=== PATIENT | female | born 1975 | race Caucasian/White ===

== ENCOUNTER 2021-03-20 10:19 | Outpatient (CLI) | payer OTHER, SELFPAY ==
[2021-03-20 11:41] LABS: SARS-CoV-2 RNA PCR Negative (Negative)
== END 2021-03-20 10:20 | disposition home or self-care (01) ==
LOC: CHSLAB 10:23
PROVIDERS: PCP Internal Medicine; Visit Provider Nurse Practitioner Family
DX: Z20.822 Contact with and (suspected) exposure to COVID-19 (principal)
CPT/HCPCS: C9803; U0003; U0005

== ENCOUNTER 2022-05-29 08:31 | Emergency (ER) | payer OTHER, SELFPAY ==
[2022-05-29 08:34] VITALS: BP 121/84; PULSE 88; RESP 20; TEMP 36.6; O2SAT 97
--- NOTE | 2022-05-29 09:09 | ED.GENADULT ---
HPI - General Adult General Chief complaint: Upper Respiratory Infection Stated complaint: cold flu Source: patient Mode of arrival: ambulatory Limitations: no limitations History of Present Illness HPI narrative: Patient presents patient presents for evaluation of sick symptoms since Tuesday. Symptoms include sore throat, ear pain, occasional dry cough and chest tightness. She denies any fever, chills, nausea, vomiting or diarrhea. She is hoping to be swabbed for COVID. No personal hx of COVID. She has received COVID vaccination. 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 She is also planning on seeing her elderly father in the coming days. No additional complaints or concerns. Related Data Home Medications Medication Instructions Recorded Confirmed atogepant 60 mg tablet (Qulipta) mg 05/29/22 celecoxib 200 mg capsule mg 05/29/22 eletriptan 40 mg tablet mg 05/29/22 trazodone 50 mg tablet mg 05/29/22 zonisamide 100 mg capsule mg PO 05/29/22 Allergies Allergy/AdvReac Type Severity Reaction Status Date / Time No Known Allergies Allergy Verified 05/29/22 09:03 Review of Systems Review of Systems: CONSTITUTIONAL: Denies fever, chills, or sweats. EYES: Denies visual changes, redness, or discharge. ENT: Reports sore throat and bilateral ear pain CARDIOVASCULAR: Denies chest pain, palpitations, or edema. RESPIRATORY: Reports occasional dry cough and chest tightness. Denies dyspnea. GASTROINTESTINAL: Denies abdominal pain, nausea, vomiting, or diarrhea. GENITOURINARY: Denies dysuria or hematuria. SKIN: Denies rash or itching. MUSCULOSKELETAL: Denies back pain, joint pain, or myalgia. NEUROLOGIC: Denies headache, numbness, dizziness, or weakness. PSYCHIATRIC: Denies anxiety or depression. [facility] Past Medical History Medical History (Updated 05/29/22 @ 09:16 by Darell Rivas, [place], [place]) Brain tumor Breast cancer Surgical History Surgical History History of brain surgery History of mastectomy Family History Family History Father Dementia Social History Social History (Reviewed 05/29/22 @ 09:14 by Darell Rivas, [facility], Ron Smoking status: Never smoker Substance use: never Gender identity (if verbalized by the patient): Female Sexual Orientation (if Verbalized by the Patient): Straight or Heterosexual Spiritual care concerns: No Exam Narrative: GENERAL: Well-appearing, well-nourished, and in no acute distress. HEAD: Normocephalic, atraumatic. EYES: PERRLA and EOMI. ENT: Nares clear, no rhinorrhea or epistaxis. Mucous membranes moist. Posterior pharyngeal erythema without exudate. Uvula is midline. Bilateral TMs pearly johnson nonbulging NECK: Supple. No adenopathy or masses. No carotid bruits or JVD CHEST: Clear to auscultation. No respiratory distress. No wheezes rales or rhonchi HEART: Regular rate and rhythm. No murmur heard. Normal peripheral pulses. ABDOMEN: Soft, nontender, nondistended, normal active bowel sounds. EXTREMITIES: Normal range of motion. No edema. SKIN: Warm, dry, no rash. NEURO: No focal deficits. Alert and oriented x3. PSYCH: Normal mood and affect. Course Course Emergency Course: This is a 39-year-old female who presented for evaluation of sick symptoms. COVID was negative. Influenza A positive. Will treat with Tamiflu. Increase hydration. Bctf-[id number] agents for symptom management. Advised if she sees her father it would place him at risk. Will wear mask. Strict hand hygiene. Follow up with primary provider. Go to ER for worsening symptoms. Pt in agreement with plan of care. Level of Care: Express Care Visit Vital Signs Vital signs: Vital Signs Temperature 36.6 C 05/29/22 08:34 Pulse Rate 88 05/29/22 08:34 Respiratory Rate 20 05/29/22 08:34 Blood Pressure 121/84 05/29/22 08:34
== END 2022-05-29 09:25 | disposition home or self-care (01) ==
PROVIDERS: Emergency Provider Nurse Practitioner; PCP Internal Medicine
DX: J10.1 Influenza due to other identified influenza virus with other respiratory manifestations (principal); Z20.822 Contact with and (suspected) exposure to COVID-19; Z85.3 Personal history of malignant neoplasm of breast
CPT/HCPCS: 87081; 87426; 87804; 99213; C9803; G0463

== ENCOUNTER 2023-01-21 10:15 | Emergency (ER) | payer OTHER, SELFPAY ==
[2023-01-21 10:15] VITALS: BP 132/93; PULSE 97; RESP 20; TEMP 36.7; O2SAT 95
--- NOTE | 2023-01-21 10:38 | ED.GENADULT ---
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 Denies any abdominal pain she has had a cough for 2 weeks denies fever sore throat. She has had a little bit of a runny nose. She is eating and drinking. She complains of dysuria for the last 2 days. Denies any other lumps or bumps or weakness or numbness dizziness or lightheadedness. She had a nose bleed yesterday. she has had some nausea the last 2 days it has taken her nausea med for the medicine for this. Mother said she has not vomited she had some blood per her rectum when she wiped her Bottom today. Denies any other complaints. 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 She has had radiation therapy Related Data Home Medications Medication Instructions Recorded Confirmed atogepant 60 mg tablet (Qulipta) mg 05/29/22 celecoxib 200 mg capsule mg 05/29/22 eletriptan 40 mg tablet mg 05/29/22 trazodone 50 mg tablet mg 05/29/22 zonisamide 100 mg capsule mg PO 05/29/22 Allergies Allergy/AdvReac Type Severity Reaction Status Date / Time No Known Allergies Allergy Verified 05/29/22 09:03 [facility] Past Medical History Medical History Brain tumor Breast cancer Surgical History Surgical History History of brain surgery History of mastectomy Family History Family History Father Dementia Social History Social History Smoking status: Never smoker Substance use: never Living arrangements: with family Gender identity (if verbalized by the patient): Female Sexual Orientation (if Verbalized by the Patient): Straight or Heterosexual Spiritual care concerns: No Exam Narrative: White female appears in no apparent distress alert follows commands head she has deformity to left side of her head neck is supple nontender lungs are clear heart is regular rate rhythm without murmurs gallops or rubs abdomen is soft and nontender no hepatosplenomegaly or masses no CVA tenderness no abdominal bruits. Extremities no cyanosis clubbing or edema. Course Vital Signs Vital signs: Vital Signs Temperature 36.7 C 01/21/23 10:15 Pulse Rate 97 01/21/23 10:15 Respiratory Rate 20 01/21/23 10:15 Blood Pressure 132/93 H 01/21/23 10:15 Pulse Oximetry 95 01/21/23 10:15 Oxygen Delivery Room Air 01/21/23 10:15 Temperature 36.7 C 01/21/23 10:15 Pulse Rate 97 01/21/23 10:15 Respiratory Rate 20 01/21/23 10:15 Blood Pressure 132/93 H 01/21/23 10:15 Pulse Oximetry 95 01/21/23 10:15 Oxygen Delivery Room Air 01/21/23 10:15 Medical Decision Making [facility] Narrative Medical decision making narrative: patient is placed in room 2 with her mother history and physical were performed. The urinalysis was obtained via straight catheterization also for culture and sensitivity. Patient had soapsuds enema and got good results with this patient felt much better. Urinalysis was unremarkable. Stool for occult blood was negative Independent Historian: patient and mother? Differential Dx includes but not limited to: constipation, fecal impaction, metastasis Medications were Reviewed:? ? medications reviewed Medications treatments given: Soapsuds enemas With good results. Independe
[2023-01-21 11:13] LABS: Appearance Urine Clear (Clear); Bilirubin Urine Negative (Negative); Blood Urine Trace-Intact (Negative); Color Urine Light Yellow (Yellow); Glucose Urine UA Negative (Negative); Ketones Urine Negative (Negative); Leukocyte Esterase Ur Negative (Negative); Nitrate Urine Negative (Negative); Protein Urine Negative (Negative); Urobilinogen Urine 0.2 mg/dL (0.2-1.0)
[2023-01-21 11:18] LABS: Add Urine Microscopic? YES; RBC Urine None seen /hpf (0-2); Squamous Epithelial Cell Urine Few /hpf (Few); WBC Urine None seen /hpf (0-3)
[2023-01-21 11:19] LABS: Bacteria Urine Trace /hpf; Mucus Urine Moderate /lpf
[2023-01-21 11:24] LABS: Occult Blood Negative (Negative)
[2023-01-21 12:21] VITALS: BP 136/91; PULSE 88; RESP 15; O2SAT 99
--- NOTE | 2023-01-23 13:23 | PC.NURSE ---
urine culture reviewed no growth
== END 2023-01-21 13:10 | disposition home or self-care (01) ==
PROVIDERS: Emergency Provider Emergency Medicine; PCP Internal Medicine
DX: K56.41 Fecal impaction (principal); R30.0 Dysuria; C71.9 Malignant neoplasm of brain, unspecified
CPT/HCPCS: 81001; 82272; 87086; 99283

== ENCOUNTER 2023-03-09 20:59 | Observation (INO) | payer OTHER, SELFPAY ==
--- NOTE | ~2023-03-09 | XR_ITS ---
EXAMINATION: XR chest ET placement INDICATION: Respiratory failure TECHNIQUE: Portable AP chest at 2116 hours COMPARISON: 05/28/2019 FINDINGS: The endotracheal tube ends 1.5 cm above the shamar. A right internal jugular catheter ends with its tip in the distal superior vena cava. The lungs are free of acute opacities. No pleural effu shankar or pneumothorax. There appears to be a gastrostomy. IMPRESSION: 1. Endotracheal tube 1.5 cm above the shamar. Reviewed, dictated and finalized at location F.
[2023-03-09 20:59] VITALS: BP 138/81; PULSE 108; RESP 8; O2SAT 97
[2023-03-09] MEDS: ETOMIDATE 20 MG/10 ML AMPUL 10 MG IV PUSH (20:59)
[2023-03-09] MEDS: SUCCINYLCHOLINE CHLORIDE 20 MG/ML 10 ML VIAL 100 MG IV PUSH (20:59)
[2023-03-09] MEDS: SODIUM CHLORIDE 0.9% IV 500 ML 999 ML IV CONT (20:59)
--- NOTE | 2023-03-09 21:29 | ED.SOB ---
HPI - SOB/Dyspnea General Chief Complaint: Unspecified Stated Complaint: Ambulance Time Seen by Provider: 03/09/23 21:06 Source: EMS History of Present Illness HPI Narrative: 47-year-old female with a history of brain cancer with Mets was discharged from [facility] today. While at home the patient developed -- agonal breathing following which EMS was called. The patient was noted to be in acute respiratory failure for which the EMS bagged. the patient was back for 30 minutes prior to coming to the ER. -- The patient was DNR but the family rescinded her DNR and made her into a full code. -- In view of the respiratory failure the patient was emergently intubated and bagged. -- Patient was unresponsive to verbal commands and painful stimuli. MD elicited complaint: shortness of breath and anxiety ( acute on chronic respiratory failure) Onset (ago): hour(s) ( 1 hour ago) Severity: severe Related Data Home Medications Medication Instructions Recorded Confirmed atogepant 60 mg tablet (Qulipta) mg 05/29/22 celecoxib 200 mg capsule (Celebrex) 200 mg feeding tube HS 05/29/22 03/09/23 eletriptan 40 mg tablet mg 05/29/22 trazodone 50 mg tablet 50 mg feeding tube HS 05/29/22 03/09/23 zonisamide 100 mg capsule 500 mg PO HS 05/29/22 03/09/23 (Zonegran) Senna Plus (senna-docusate) 8.6 - 50 mg G-tube BID 03/09/23 03/09/23 famotidine 20 mg tablet (Acid 20 mg PO DAILY 03/09/23 03/09/23 Mandarin Speaking Nanny (famotidine)) hyoscyamine sulfate 0.125 mg 0.125 mg feeding tube QID PRN 03/09/23 03/09/23 tablet (Levsin) Secretions lorazepam 0.5 mg tablet (Ativan) 0.5 mg PO DAILY PRN Anxiety 03/09/23 03/09/23 ondansetron HCl 4 mg tablet See Rx Instructions .Route .COMPLEX 03/09/23 03/09/23 ondansetron HCl 8 mg tablet 8 mg feeding tube TID 03/09/23 03/09/23 oxycodone 10 mg tablet 10 mg feeding tube Q4H PRN Pain 03/09/23 03/09/23 prochlorperazine maleate 10 mg 10 mg feeding tube PRN 03/09/23 03/09/23 tablet (Compazine) Allergies Allergy/AdvReac Type Severity Reaction Status Date / Time No Known Allergies Allergy Verified 03/09/23 23:41 Review of Systems Review of Systems: The patient is unresponsive to verbal commands and painful stimuli and is unable to provide any history. ROS unobtainable: Yes unobtainable due to endotracheal tube PMFSH Past Medical History Medical History Brain tumor Breast cancer Surgical History Surgical History History of brain surgery History of mastectomy Family History Family History Father Dementia Social History Social History Smoking status: Never smoker Substance use: never Living arrangements: with family Gender identity (if verbalized by the patient): Female Sexual Orientation (if Verbalized by the Patient): Straight or Heterosexual Spiritual care concerns: No Exam Const: General: ill appearing Other: Patient is unresponsive to verbal commands and painful stimuli. She is intubated and currently bagged HENMT: Head: normal to inspection Ears: external ears normal Face/Nose/Sinus: Normal external nose present Face and sinus: normal facial exam Eyes: Conjunctivae: conjunctivae normal Pupils: Equal, round and reactive pupils present ( Pupils show skew deviation of the eyes. Pupils are reacting to light.) Neck: Neck: normal visual inspection Chest: Chest palpation & inspection: normal inspection of the chest Resp: Auscultation: diminished lung sounds Other: Bilaterally decreased breath sounds. Without bagging the patient has agonal breathing with 3-5 spontaneous breaths per minute. increased respiratory secretions Cardio: Rate: regular rate Rhythm: regular rhythm GI: GI Palp: Yes Soft to palpation : Gen
[2023-03-09 21:32] LABS: Basophils Absolute Auto 0.01 K/mm3 (0.00-0.10); Basophils Percent Auto 0.1 % (0.0-1.0); Eosinophils Absolute Auto 0.05 K/mm3 (0.02-0.50); Eosinophils Percent Auto 0.6 % (1.0-6.0); Hematocrit 29.9 % (35.0-49.0); Hemoglobin 9.8 g/dL (12.0-15.0); Immature Granulocyte Absolute 0.04 K/mm3 (0.00-0.00); Immature Granulocyte Percent A 0.5 % (0.0-0.0); Immature Platelet Fraction Pct 3.2 % (1.0-7.0); Lymphocytes Absolute Auto 0.93 K/mm3 (1.10-4.50); Lymphocytes Percent Auto 11.2 % (18.0-42.0); Mean Corpuscular HGB Conc 32.8 g/dL (32.0-36.0); Mean Corpuscular Hemoglobin 33.4 pg (27.0-31.0); Mean Platelet Volume 9.9 fl (9.2-11.8); Monocytes Percent Auto 4.8 % (2.0-11.0); Neutrophils Absolute Auto 6.9 K/mm3 (1.7-7.2); Neutrophils Percent Auto 82.8 % (50.0-70.0); Platelet Count Result 92 K/mm3 (150-420); Red Blood Count 2.93 M/mm3 (4.20-5.40); Red Cell Distribution Width 13.8 % (11.6-14.4); White Blood Count 8.3 K/mm3 (4.8-10.8)
[2023-03-09 21:43] VITALS: O2SAT 96
[2023-03-09] MEDS: MORPHINE SULFATE (*CRX) 4 MG/ML INJ IV PUSH (21:44)
[2023-03-09 21:45] LABS: Partial Thromboplastin Time 25.2 SEC (23.90-30.70); Prothrombin Time 10.7 Seconds (9.50-12.10)
[2023-03-09] MEDS: diphenhydrAMINE HCl INJ 50 MG/ML VIAL 25 MG IV PUSH (21:45)
[2023-03-09 21:46] LABS: Alanine Aminotransferase 176 U/L (14-59); Albumin Level 2.2 g/dL (3.4-5.0); Alkaline Phosphatase 379 U/L (46-116); Anion Gap 14 mmol/L (8-16); Aspartate Amino Transferase 49 U/L (15-37); Bilirubin,Total 0.6 mg/dL (0.00-1.00); Blood Urea Nitrogen 19 mg/dL (7-18); Calcium 8.8 mg/dL (8.5-10.1); Carbon Dioxide 23 mmol/L (21-32); Chloride 102 mmol/L (98-108); Estimated Glomerular Filt Rate 57; Glucose 170 mg/dL (70-99); Lactic Acid Reflex 3.3 mmol/L (0.4-2.0); Lipase 48 U/L (16-77); Osmolality Calculated 294 mOsm/kg (285-295); Sodium 139 mmol/L (136-145); Total Protein 6.5 g/dL (6.4-8.2)
[2023-03-09 21:47] LABS: Troponin I 121.5 ng/L (0.00-60.4)
[2023-03-09 21:48] LABS: Triglycerides 108 mg/dL (0-150)
--- NOTE | 2023-03-09 21:51 | PCRCNOTE ---
per dr. lima extubated patient and placed on 2LNC
[2023-03-09 22:11] VITALS: BP 126/79; PULSE 106; RESP 20; TEMP 36.2; O2SAT 94
[2023-03-09] MEDS: MORPHINE SULFATE (*CRX) 2 MG/ML INJ IV PUSH (22:51)
[2023-03-10] VITALS (8 sets, daily range): BP systolic 88–126; BP diastolic 51–92; PULSE 110–145; RESP 19–28; TEMP 36.1–39.1; O2SAT 88–97; BMI 32.9
[2023-03-10 00:27] LABS: Reflex Lactic Acid Yes or No Add Lactic
[2023-03-10] MEDS: MORPHINE SULFATE (*CRX) 2 MG/ML INJ IV PUSH ×6 (00:28→13:40)
--- NOTE | 2023-03-10 01:22 | ADMGEN ---
This patient, Edilia Murray, was admitted to 2nd Floor Room 205-2. Family oriented to hospital policies and general routines including ID bracelet, bed and alarms, visiting hours, pain management, procedures, bathroom and other care routines, personal items, smoking policy, room service/diet, and visiting hours. Information on the process of relayed to the family and signs to look for. RN informed family to notify nurses station if pt has passed. Family are encouraged to report perceived risks to care and to ask questions if they do not understand what they are told or what they should do.
[2023-03-10] MEDS: diphenhydrAMINE HCl INJ 50 MG/ML VIAL 12.5 MG IV PUSH (03:00)
--- NOTE | 2023-03-10 04:00 | PC.NURSE ---
Willam Soriano NP, called to get an update on pt's condition. New orders received and noted.
[2023-03-10] MEDS: LORazepam INJ (*CRX) 2 MG/ML VIAL IV PUSH ×4 (05:27→13:41)
[2023-03-10] MEDS: SCOPOLAMINE 1.5 MG PATCH (08:09)
--- NOTE | 2023-03-10 08:41 | PM.IMHP ---
H&P: HPI History of Present Illness Date/Time: 03/10/23 08:41 Chief Complaint: Breat Cancer w Mets, Pallative care PMFSH Past Medical History Medical History Brain tumor Breast cancer Surgical History Surgical History History of brain surgery History of mastectomy Family History Family History Father Dementia Social History Social History Smoking status: Never smoker Alcohol intake: never Substance use: current Substance use type: prescription drug Living arrangements: with family Gender identity (if verbalized by the patient): Female Sexual Orientation (if Verbalized by the Patient): Straight or Heterosexual Spiritual care concerns: No Meds Home Medications and Allergies Home Medications Medication Instructions Recorded Confirmed Type atogepant 60 mg tablet (Qulipta) mg 05/29/22 History celecoxib 200 mg capsule (Celebrex) 200 mg feeding tube HS 05/29/22 03/09/23 History eletriptan 40 mg tablet mg 05/29/22 History trazodone 50 mg tablet 50 mg feeding tube HS 05/29/22 03/09/23 History zonisamide 100 mg capsule 500 mg PO HS 05/29/22 03/09/23 History (Zonegran) Senna Plus (senna-docusate) 8.6 - 50 mg G-tube BID 03/09/23 03/09/23 History famotidine 20 mg tablet (Acid 20 mg PO DAILY 03/09/23 03/09/23 History Rn Wellness (famotidine)) hyoscyamine sulfate 0.125 mg 0.125 mg feeding tube QID PRN 03/09/23 03/09/23 History tablet (Levsin) Secretions lorazepam 0.5 mg tablet (Ativan) 0.5 mg PO DAILY PRN Anxiety 03/09/23 03/09/23 History ondansetron HCl 4 mg tablet See Rx Instructions .Route .COMPLEX 03/09/23 03/09/23 History ondansetron HCl 8 mg tablet 8 mg feeding tube TID 03/09/23 03/09/23 History oxycodone 10 mg tablet 10 mg feeding tube Q4H PRN Pain 03/09/23 03/09/23 History prochlorperazine maleate 10 mg 10 mg feeding tube PRN 03/09/23 03/09/23 History tablet (Compazine) Allergies Allergy/AdvReac Type Severity Reaction Status Date / Time No Known Allergies Allergy Verified 03/09/23 23:41 Vital Signs Vital Signs - 24 hr 03/09/23 20:59 03/09/23 22:11 03/09/23 20:59 Temperature 97.1 F L Pulse Rate 108 H 106 H 108 H Respiratory Rate 8 L 20 Blood Pressure 138/81 126/79 Pulse Oximetry 97 94 Oxygen Delivery Bag Valve Mask Nasal Cannula Oxygen Flow Rate 2 03/09/23 20:59 03/10/23 00:12 03/10/23 00:51 Temperature 98.0 F Pulse Rate 115 H 112 H Respiratory Rate 23 H 19 Blood Pressure 113/92 H 126/86 Pulse Oximetry 92 92 Oxygen Delivery Bag Valve Mask Nasal Cannula Nasal Cannula Oxygen Flow Rate 2 2 03/10/23 01:30 03/10/23 02:01 03/09/23 21:43 Temperature 96.9 F L Pulse Rate 110 H Respiratory Rate 20 Blood Pressure 115/84 Pulse Oximetry 97 97 96 Oxygen Delivery Nasal Cannula Nasal Cannula Nasal Cannula Oxygen Flow Rate 2 2 2 03/10/23 04:58 Temperature Pulse Rate Respiratory Rate Blood Pressure 118/81 Pulse Oximetry Oxygen Delivery Oxygen Flow Rate H&P: Results Labs Labs: Short CBC 03/09/23 Range/Units 21:27 WBC 8.3 (4.8-10.8) K/mm3 Hgb 9.8 L (12.0-15.0) g/dL Hct 29.9 L (35.0-49.0) % Plt Count 92 L (150-420) K/mm3 BMP 03/09/23 21:27 Sodium 139 Potassium 4.0 Chloride 102 Carbon Dioxide 23 BUN 19 H Creatinine 1.03 H Glucose 170 H Calcium 8.8 Cardiac Enzymes 03/09/23 Range/Units 21:27 Troponin I 121.5 H* (0.00-60.4) ng/L Liver Function 03/09/23 Range/Units 21:27 Total Bilirubin 0.6 (0.00-1.00) mg/dL AST 49 H (15-37) U/L ALT 176 H (14-59) U/L Alkaline Phosphatase 379 H (46-116) U/L Albumin 2.2 L (3.4-5.0) g/dL Assessment and Plan Assessment and plan (1) Metastatic cancer: Qualifiers: Area of secon
[2023-03-10] MEDS: ATROPINE SULFATE 1% OPHTH SOLN 5 ML BOTTLE 1 DROP SUBLINGUAL (09:38)
--- NOTE | 2023-03-10 12:45 | PC.NURSE ---
Nedra HOUSTON with [facility] here to do patient intake.
--- NOTE | 2023-03-10 13:00 | PC.NURSE ---
Patient discharged to inpatient hospice.
--- NOTE | 2023-03-10 14:42 | PC.NURSE ---
MICHELLE Parmar notified of pt temp of 102.3. Tylenol suppository ordered. Family refused . Pt is unresponsive and terminal family at bedside.
--- NOTE | 2023-03-11 09:50 | PM.SD2 ---
Same Day Admit/Disch: HPI History of Present Illness Chief complaint: METASTATIC CANCER Narrative: Edilia Murray is a 47 year old female ?47-year-old female with a history of brain cancer with Mets was discharged from [facility] today.? While at home the patient developed -- agonal breathing following which EMS was called.? The patient was noted to be in acute respiratory failure for which the EMS bagged. the patient was back for 30 minutes prior to coming to the ER. --? The patient was DNR but the family rescinded her DNR and made her into a full code. --? In view of the respiratory failure the patient was emergently intubated and bagged. --? ? Patient was unresponsive to verbal commands and painful stimuli. MD elicited complaint: shortness of breath and anxiety ( acute on chronic respiratory failure) Onset (ago): hour(s) ( 1 hour ago) Severity: severe PMF Past Medical History Medical History Brain tumor Breast cancer Surgical History Surgical History History of brain surgery History of mastectomy Family History Family History Father Dementia Social History Social History Smoking status: Never smoker Alcohol intake: never Substance use: never Substance use type: does not use Living arrangements: with family Gender identity (if verbalized by the patient): Female Sexual Orientation (if Verbalized by the Patient): Straight or Heterosexual Spiritual care concerns: No Same Day Admit/Disch: Med Pre-admit Medications Home Medications Medication Instructions Recorded Confirmed Type atogepant 60 mg tablet (Qulipta) mg 05/29/22 History celecoxib 200 mg capsule (Celebrex) 200 mg feeding tube HS 05/29/22 03/10/23 History eletriptan 40 mg tablet mg 05/29/22 History trazodone 50 mg tablet 50 mg feeding tube HS 05/29/22 03/10/23 History zonisamide 100 mg capsule 500 mg PO HS 05/29/22 03/10/23 History (Zonegran) Senna Plus (senna-docusate) 8.6 - 50 mg G-tube BID 03/09/23 03/10/23 History famotidine 20 mg tablet (Acid 20 mg PO DAILY 03/09/23 03/10/23 History Glazing Department Supervisor (famotidine)) hyoscyamine sulfate 0.125 mg 0.125 mg feeding tube QID PRN 03/09/23 03/10/23 History tablet (Levsin) Secretions lorazepam 0.5 mg tablet (Ativan) 0.5 mg PO DAILY PRN Anxiety 03/09/23 03/10/23 History ondansetron HCl 4 mg tablet See Rx Instructions .Route .COMPLEX 03/09/23 03/10/23 History ondansetron HCl 8 mg tablet 8 mg feeding tube TID 03/09/23 03/10/23 History oxycodone 10 mg tablet 10 mg feeding tube Q4H PRN Pain 03/09/23 03/10/23 History prochlorperazine maleate 10 mg 10 mg feeding tube PRN 03/09/23 03/10/23 History tablet (Compazine) Review of Systems Review of Systems unresponsive, labored breathing All systems reviewed & are unremarkable except as noted in HPI and below Exam Const: General: anxious, ill appearing and lethargic Chest: Chest palpation & inspection: normal inspection of the chest Resp: Effort & Inspection: decreased respiratory effort and labored Auscultation: diminished lung sounds Cardio: Other: Tachycardic GI: Inspection: normal to inspection Skin: General skin exam: dry skin Lesions: no lesions Hair: patchy alopecia Other: Patchy Neuro: General: patient obtunded Other: unresponsive Psych: Other: unresponsive DS: Summary Hospital Course Reason for hospitalization: Respiratory distress, Hospice breast Cancer w mets to the brain. Hospital Course: patient is unresponsive and family would like to take her home if there is medication from hospice. Patient is having some labored breathing although she is to weak for travel at this time we will changed patient from observation to inpatient and place her o
== END 2023-03-10 12:59 | disposition hospice, inpatient (51) ==
LOC: CHSED 03-10 00:10 → CHS2ND 03-10 07:19
PROVIDERS: Admitting Provider Internal Medicine; Emergency Provider Internal Medicine Critical Care Medicine; PCP Internal Medicine; Visit Provider Internal Medicine
DX: C79.31 Secondary malignant neoplasm of brain (principal); J96.20 Acute and chronic respiratory failure, unspecified whether with hypoxia or hypercapnia; Z85.3 Personal history of malignant neoplasm of breast; Z79.899 Other long term (current) drug therapy; Z51.5 Encounter for palliative care; R40.4 Transient alteration of awareness
CPT/HCPCS: 31500; 36415; 80053; 83605; 83690; 84478; 84484; 85025; 85055; 85610; 85730; 96374; 96375; 96376; 99285; A9270; G0378; J0330; J1200; J2060; J2270; J7040

== ENCOUNTER 2023-03-10 13:00 | Inpatient (IN) | payer OTHER, SELFPAY ==
[2023-03-10 13:30] VITALS: O2SAT 90
[2023-03-10 13:40] VITALS: BMI 32.9
--- NOTE | 2023-03-10 13:40 | PC.NURSE ---
Patient admitted as Inpatient Hospice with [facility].
[2023-03-10] MEDS: LORazepam INJ (*CRX) 2 MG/ML VIAL IV PUSH ×5 (15:13→22:52)
[2023-03-10] MEDS: MORPHINE SULFATE (*CRX) 4 MG/ML INJ 3 MG IV PUSH ×10 (15:14→23:42)
[2023-03-10 18:27] VITALS: PULSE 110; RESP 26; O2SAT 88
[2023-03-10] MEDS: ATROPINE SULFATE 1% OPHTH SOLN 5 ML BOTTLE 1 DROP SUBLINGUAL (19:00)
[2023-03-11] MEDS: MORPHINE SULFATE (*CRX) 4 MG/ML INJ 3 MG IV PUSH ×21 (00:47→20:54)
[2023-03-11] MEDS: LORazepam INJ (*CRX) 2 MG/ML VIAL IV PUSH ×11 (00:47→20:55)
[2023-03-11 03:13] VITALS: RESP 11
[2023-03-11 07:06] VITALS: BP 95/59; PULSE 127; TEMP 37.7; O2SAT 85
[2023-03-11] MEDS: ATROPINE SULFATE 1% OPHTH SOLN 5 ML BOTTLE 1 DROP SUBLINGUAL ×3 (07:32→18:50)
[2023-03-11 07:50] VITALS: PULSE 120; RESP 8
--- NOTE | 2023-03-11 08:43 | PC.NURSE ---
Pt resting comfortably. Respirations 10/min. Pt unresponsive, family at bedside.
[2023-03-11 08:51] VITALS: BP 90/50; PULSE 100; RESP 10; TEMP 37.3; O2SAT 89
--- NOTE | 2023-03-11 09:24 | PM.IMHP ---
H&P: HPI History of Present Illness Date/Time: 03/11/23 09:24 Chief Complaint: Pallative care inpatient hospice , Breast cancer with Mets Narrative: This is 47 year old female that presented to the emergency room from home who was on hospice due to Breast Cancer w metastitis to the Brain. Patient is unresponsive and has some labored breathing was initally tachycardic. PRN and regularly schedule medication for comfort. Family is at bedside patient is requiring oxygen and she is comfortable at this time Review of Systems Review of Systems: unresponsive, labored breathin g All systems reviewed & are unremarkable except as noted in HPI and below PMFSH Past Medical History Medical History Brain tumor Breast cancer Surgical History Surgical History History of brain surgery History of mastectomy Family History Family History Father Dementia Social History Social History Smoking status: Never smoker Alcohol intake: never Substance use: never Substance use type: does not use Living arrangements: with family Gender identity (if verbalized by the patient): Female Sexual Orientation (if Verbalized by the Patient): Straight or Heterosexual Spiritual care concerns: No Meds Home Medications and Allergies Home Medications Medication Instructions Recorded Confirmed Type atogepant 60 mg tablet (Qulipta) mg 05/29/22 History celecoxib 200 mg capsule (Celebrex) 200 mg feeding tube HS 05/29/22 03/10/23 History eletriptan 40 mg tablet mg 05/29/22 History trazodone 50 mg tablet 50 mg feeding tube HS 05/29/22 03/10/23 History zonisamide 100 mg capsule 500 mg PO HS 05/29/22 03/10/23 History (Zonegran) Senna Plus (senna-docusate) 8.6 - 50 mg G-tube BID 03/09/23 03/10/23 History famotidine 20 mg tablet (Acid 20 mg PO DAILY 03/09/23 03/10/23 History Paint Prep Technician (famotidine)) hyoscyamine sulfate 0.125 mg 0.125 mg feeding tube QID PRN 03/09/23 03/10/23 History tablet (Levsin) Secretions lorazepam 0.5 mg tablet (Ativan) 0.5 mg PO DAILY PRN Anxiety 03/09/23 03/10/23 History ondansetron HCl 4 mg tablet See Rx Instructions .Route .COMPLEX 03/09/23 03/10/23 History ondansetron HCl 8 mg tablet 8 mg feeding tube TID 03/09/23 03/10/23 History oxycodone 10 mg tablet 10 mg feeding tube Q4H PRN Pain 03/09/23 03/10/23 History prochlorperazine maleate 10 mg 10 mg feeding tube PRN 03/09/23 03/10/23 History tablet (Compazine) Allergies Allergy/AdvReac Type Severity Reaction Status Date / Time No Known Allergies Allergy Verified 03/09/23 23:41 Vital Signs Vital Signs - 24 hr 03/10/23 18:27 03/11/23 01:55 03/11/23 03:13 Temperature Pulse Rate 110 H Respiratory Rate 26 H 11 L Blood Pressure Pulse Oximetry 88 L Oxygen Delivery Nasal Cannula Nasal Cannula Oxygen Flow Rate 2 2 03/10/23 13:30 03/11/23 07:06 03/11/23 07:50 Temperature 99.9 F H Pulse Rate 127 H 120 H Respiratory Rate 8 L Blood Pressure 95/59 L Pulse Oximetry 90 85 L Oxygen Delivery Nasal Cannula Nasal Cannula Oxygen Flow Rate 2 3 03/11/23 08:51 Temperature 99.2 F Pulse Rate 100 Respiratory Rate 10 L Blood Pressure 90/50 L Pulse Oximetry 89 L Oxygen Delivery Nasal Cannula Oxygen Flow Rate 3 Exam Const: General: comfortable Eyes: General: appearance normal, both eyes and all related structures Resp: Auscultation: diminished lung sounds Other: Labored shallow breathing GI: GI Palp: Yes Soft to palpation Auscultation: normal bowel sounds Urinary Catheter: Urinary Catheter: patent and draining Skin: Other: Pale skin color Extrem: General: pedal edema Other: strong bounding pulse Psych: Other: Unresponsive Assessment and Plan As
[2023-03-11 14:35] VITALS: BP 92/53; PULSE 132; RESP 10; TEMP 36.4; O2SAT 87
[2023-03-11] MEDS: MORPHINE SULFATE (*CRX) 2 MG/ML INJ 1 MG IV PUSH (20:06)
[2023-03-11 20:10] VITALS: BP 82/50; PULSE 138; RESP 10; TEMP 36.7; O2SAT 88
--- NOTE | 2023-03-11 21:21 | PC.NURSE ---
Patient has no respirations, no pulse, no BP. Family @ bedside. Time of 2119. [facility] in [place] to handle arrangements.
--- NOTE | 2023-03-11 22:17 | PC.NURSE ---
Spoke with Stew, [facility], notified and information given. [facility] nurse to call and speak with , Henrik.
--- NOTE | 2023-03-11 22:33 | PC.NURSE ---
Nedra, Hospice Nurse, here to see family.
--- NOTE | 2023-03-11 23:30 | PC.NURSE ---
[facility] called to say tech will be here approximately [phone]
--- NOTE | 2023-03-11 23:35 | PC.NURSE ---
PICC and montano catheter removed.
--- NOTE | 2023-03-12 01:00 | PC.NURSE ---
[facility] personnel here to harvest corneas
--- NOTE | 2023-03-12 03:25 | PC.NURSE ---
[facility] personnel have finished with corneal harvest. [facility] in [place] notified of patient expiring and family choosing that home.
--- NOTE | 2023-03-12 03:45 | PC.NURSE ---
[facility] called to say they'll be here in approximately 1-1 1/2 hours.
--- NOTE | 2023-03-12 04:57 | PC.NURSE ---
Remains released to [facility] @ [phone]
--- OUTSIDE RECORDS SUMMARY | 2023-03-15 12:05 | XMS_ITS | Continuity of Care Document ---
Author Name Unknown Organization [facility] Address [address] [place] [id number] Care Team Providers Care Hull Builder Name Role Phone Nicholas Burciaga Primary Care Physician [phone] Encounter [facility] Financial Number [id number] Date(s): 10/08/22 - 10/08/[address] [id number] Encounter Diagnosis Diplopia(Discharge Diagnosis) - 10/08/22 Gait disturbance(Discharge Diagnosis) - 10/08/22 Discharge Disposition: Home or Self Care Attending Physician: Malcom Santo M.D. Referring Physician: Self, Referred Allergies, Adverse Reactions, Alerts No Known Allergies Assessment and Plan Future Appointments Appointment Date:08/19/2023 09:40:00 AM Scheduled Provider:Lamin Pandya MD Location:[facility] Appointment Type:[facility] Exam Immunizations Given and Recorded Vaccine Date Status Refusal Reason SARS-CoV-2 (COVID-19) mRNA-1273 vaccine 07/01/21 R ecorded SARS-CoV-2 (COVID-19) mRNA BNT-162b2 vax 08/30/20 Recorded SARS-CoV-2 (COVID-19) mRNA BNT-162b2 vax 08/02/20 Recorded Medications Albuterol (Eqv-ProAir HFA) 90 mcg/inh inhalation aerosol 2 puff(s), Oral, [id number], PRN, 0, shortness of breath Start Date: 08/12/21 Status: Ordered Align 1 capsule(s), Oral, daily, 30 capsule(s), Capsule(s), 0 Start Date: 04/23/19 Status: Ordered CeleBREX 200 mg oral capsule 200 mg, 1 capsule(s), Oral, daily, 30 capsule(s), Capsule(s), 0 Start Date: 07/31/18 Status: Ordered Flonase Nasal Bethel 1 spray(s), Nasal, daily, 1 spray(s), [place]hel, 0 Start Date: 04/23/19 Status: Ordered magnesium oxide 500 mg oral tablet 500 mg, 1 tablet(s), Oral, daily, 10 tablet(s), Tablet(s), 0 Start Date: 04/23/19 Stop Date: 05/03/19 Status: Ordered Relpax 20 mg, Oral, as needed, PRN, 0, headache Start Date: 07/31/18 Status: Ordered traZODone 50 mg oral tablet 50 mg, 1 tablet(s), Oral, qhs, 30 tablet(s), Tablet(s), 0 Start Date: 07/31/18 Status: Ordered Tylenol with Codeine #3 oral tablet (Not recommended for <18 years old) 1 tablet(s), Oral, q4hr, PRN, tablet(s), Tablet(s), 0, for mhosen
--- NOTE | 2023-03-17 07:34 | PM.DDS ---
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 Murray was prononouced @2119 I was informed by charge nurse that there was no heart beat and or respiration noted. Family was at bedside Additional Data Confirmation of as documented by pronouncing clinician: Pupillary Reflex, Palpable Pulses, Response to Stimuli, Heart Tones and Breath Sounds Name of Provider Notified: Willam Soriano NP/Hospitalist Time Provider Notified: 21:25 Provider Requests Autopsy: No Date [facility] Notified of : 03/11/23 Time [facility] Notified of : 21:37
== END 2023-03-11 21:20 | disposition expired | DRG 951 ==
PROVIDERS: Admitting Provider Internal Medicine; PCP Internal Medicine; Visit Provider Internal Medicine
DX: Z51.5 Encounter for palliative care (principal); C79.31 Secondary malignant neoplasm of brain; Z85.3 Personal history of malignant neoplasm of breast
CPT/HCPCS: J2060; J2270